=== PATIENT | male | born 1955 | race Caucasian/White ===

== ENCOUNTER 2024-12-28 13:22 | Emergency (ER) | payer MEDICARE, SELFPAY ==
--- OUTSIDE RECORDS SUMMARY | 2024-12-28 13:25 | XMS_ITS | Clinical Summary ---
Author Organization [facility] Address [address] [place] [id number] Care Team Providers Care Inker And Opaquer Name Role Phone Pcp, No Primary Care Provider Unavailabl e Allergies Active Allergy Reactions Criticality Noted Date Comments Perfume Rash 09/22/2009 Sensitivity to fragrances, tiburcio. 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 12/29/2017 Mood disorder 01/09/2017 Chronic obstructive pulmonary disease 06/07/2015 Tobacco abuse, in remission 06/07/2015 OCD (obsessive compulsive disorder) 10/20/2012 Overview (10/20/2012): Hoarding Moderate episode of recurrent major depressive d isorder 10/20/2012 Overview (10/20/2012): R/o MDD Alcohol abuse, in remission 10/20/2012 Sensorineural hearing loss, bilateral 10/13/2009 Legal blindness of right eye , as defined in [place] Resolved Problems Problem Noted Date Diagnosed Date Resolved Date Adjustment disorder with depressed mood 11/22/2009 10/20/2012 Immunizations Immunization Administration Dates Next Due Influenza, IIV4 03/29/2015 Influenza, Inactivated IIV3 (Age 65+ Years) Preserv Free 04/24/2019 Tdap 06/07/2015 Zoster (Zostavax-ZVL, live) 04/12/2015 Family History Medical History Relation Name Comments Psychiatric illness Child Depressi on Alcohol/Drug Father Heart attack Father Hyperlipidemia Father Hypertension Father Stroke Father age 57 Psychiatric illness Grandchild ADHD Diabetes Maternal Grandfather Asthma Mother Cancer Mother luekemia Hyperlipidemia Mother Hypertension Mother Other Mother leukemia Psychiatric illness Mother Pt is un sure but describes hoarding Psychiatric illness Sister 1 Pt is un sure Psychiatric illness Sister 2 Pt is un sure Relation Name Status Comments Child Daughter 1 Alive Daughter 2 Alive Father (Age 68) [place] Grandchild Maternal Grandfather Mother (Age 70s) Leukemia Sister 1 Alive Sister 2 Alive Social History Tobacco Use Types Packs/Day Years Used Date Smoking Tobacco: Former Cigarettes 0.5 20 1 - 03/08/2017 Cigars Smokeless Tobacco: Former Snuff Tobacco Cessation:Counseling Given: Yes Alcohol Use Standard Drinks/Week Comments Yes 0 (1 standard drink = 0.6 oz pure alcohol) Teenager, CD tx x2 remotely, 1984 DUI, heavy remotely, current 0-3 beers/week PHQ-2 Answer Date Recorded PHQ-2 TOTAL SCORE 3 07/24/2021 Social Connections Answer Date Recorded Frequency of Communication with Friends and Fami ly Not on file 07/24/2021 Sex and Gender Information Value Date Recorded Sex Assigned at Not on file Legal Sex 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 Gender Identity Not on file Sexual Orientation Not on file 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 Not on file Not on file Not on file Obstetrics History Last Filed Vital Signs Vital Sign Reading Time Taken Comments Blood Pressure 138/91 07/24/2021 3:09 PM CDT Pulse 67 07/24/2021 2:01 PM CDT Temperature 36.6 C (97.8 F) 07/24/2021 2:01 PM CDT Respiratory Rate 18 09/18/2017 2:29 PM CDT Oxygen Saturation 98% 07/24/2021 2:01 PM CDT Inhaled Oxygen Concentration - - Weight 105.4 kg (232 lb 6.4 oz) 07/24/2021 2:01 PM CDT Height 182.9 cm (6') 07/24/2021 2:01 PM CDT Body Mass Index 31.52 07/24/2021 2:01 PM CDT Plan of Treatment Health Maintenance Due Date Last Done Comments Hepatitis C screening for age 18-79 1971 Pneumococcal series for age 50+ (1 of 1 - PCV) 2003 Zoster (shingles) series for age 50+ (2 of 3) 06/07/2015 04/12/2015 Medicare Wellness for age 65+ 06/10/2019 06/09/2018 Lipids for age 45-75 03/29/2020 03/29/2015, 03/29/2015, 09/05/2012, Additional history exists BMI (ht and wt on same day) for age 18+ 07/24/2022 07/24/2021, 09/11/2018, 06/09/2018, Additional history exists Depression screening for age 12+ 07/24/2022 07/24/2021, 06/09/2018, 01/31/2018, Additional history exists COVID-19 vaccine series ( season) 2024 11/18/2020, 10/28/2020 Influenza Vaccine (#1) 2025 04/24/2019, 2014 Tetanus booster 06/07/2025 06/07/2015 RSV vaccine for adults or (1 - 1-dose 75+ series) 01/12/2028 Colonoscopy through age 75 09/21/2031 09/20/2021, Hepatitis B series for 19+ Aged Out N o longer eligible based on patient's age to complete this topic Procedures Procedure Name Priority Date/Time Associated Diagnosis Comments COLONOSCOPY 09/20/2021 11:00 AM CDT LIPID PANEL W REFLEX MEASURED LDL Routine 03/29/2015 4:39 PM LOGISTICS SYSTEM ENGINEER Physical exam from Last 3 Months or Most Recently Relevant to Health Maintenance Results * COLONOSCOPY (09/20/2021 11:00 AM CDT) 09/20/2021 11:0 0 AM CDT Narrative Transcriptions Missael Hayden MD - 09/20/2021 12:25 PM CDT Patient Name: Dg Butler Procedure Date: 09/20/2021 Gender: Male Date of : 1955 Admit Type: Outpatient Procedure: Colonoscopy Proceduralist: Missael Hayden MD , Sherlyn López RN(Nurse) Indications/Pre-Op Diagnosis: High risk colon cancer surveillance:Personal history of adenoma less than 10 mm in size, Last colonoscopy: December 2005 Medications: Fentanyl 100 micrograms IV, Midazolam 4 mgIV, The level of sedation administered wasmoderate Procedure Description: The patient had risks, benefits and alternatives explained to andgave informed consent. The patient had a stable cardiopulmonary status and judged an adequate candidate for conscious sedation. The Colon CF-H180AL [id number] was passed through the anus and advancedto the cecum, identified by appendiceal orifice and ileocecal valve. The colonoscopy was performed without difficulty. The patient toleratedthe procedure well. The quality of the bowel preparation was good. The ileocecal valve, appendiceal orifice, and rectum were photographed. Complications: No immediate complications. Estimated Blood Loss & Specimen: Estimated blood loss: none. Estimated blood loss: none. Specimen collected - None Findings: The perianal and digital rectal examinations were normal. A few small-mouthed diverticula were found in the entire colon. The exam was otherwise without abnormality. Impressions/Post-Op Diagnosis: - Diverticulosis in the entire examined colon. - The examination was otherwise normal. - No specimens collected. Recommendation: - Patient has a contact number available for emergencies. The signsand symptoms of potential delayed complications were discussed with the patient. Return to normal activities tomorrow. Written discharge instructions were provided to the patient. - Resume previous diet. - Continue present medications. - Repeat colonoscopy in 7 years for surveillance. Moderate Sedation: Moderate (conscious) sedation was administered by the endoscopy nurse and supervised by the endoscopist. The following parameters were monitored: oxygen saturation, heart rate, respiratory rate, blood pressure, adequacy of pulmonary ventilation and reponse to care. Please refer to the patient's medical record flowsheets and nursing notes for moderate sedation details. Total physician intraservice time was 26 minutes. Missael Hayden MD 09/20/2021 12:24:45 PM This report has been signed electronically. Note Initiated On: 09/20/2021 11:00 AM Procedure Code(s): --- Professional --- 72107, Colonoscopy, flexible; diagnostic, including collection of specimen(s) bybrushing or washing, when performed (separateprocedure) Diagnosis Code(s): --- Professional --- Z86.010, Personal history of colonicpolyps K57.30, Diverticulosis of large intestine without perforation or abscess withoutbleeding CPT copyright 2020 [employer]. All rights reserved. The codes documented in this report are preliminary and upon certified coder reviewmay be revised to meet current compliance requirements. Scope In: 11:44:45 AM Scope Withdrawal Time 0 hours 8 minutes 55 seconds Scope Out: 12:08:03 PM us Missael Hayden MD PROCEDURE ORD Final Res ult * (ABNORMAL) LIPID PANEL W REFLEX MEASURED LDL (03/29/2015 4:39 PM LOGISTICS SYSTEM ENGINEER) CHOLESTEROL,TOTAL 251(H) 100 - 199 mg/dL 03/29/2015 5:08 PM LOGISTICS SYSTEM ENGINEER [facility] TRIGLYCERIDES 405(H) <150 mg/dL 03/29/2015 5:08 PM LOGISTICS SYSTEM ENGINEER [facility] HDL CHOLESTEROL 33(L) >40 mg/dL 03/29/2015 5:08 PM LOGISTICS SYSTEM ENGINEER [facility] NON-HDL CHOLESTEROL 218(H) <145 mg/dl 03/29/2015 5:08 PM LOGISTICS SYSTEM ENGINEER [facility] CHOL/HDL RATIO 7.61(H) <4.50 03/29/2015 5:08 PM LOGISTICS SYSTEM ENGINEER [facility] LDL CHOLESTEROL 03/29/2015 5:08 PM LOGISTICS SYSTEM ENGINEER [facility] Comment:Invalid LDL when Tri g >400, reflexed to measured LDL PATIENT STATUS NOT GIVEN 03/29/2015 5:08 PM LOGISTICS SYSTEM ENGINEER [facility] Blood specimen (specimen) BLOOD SPECIMEN / Unknown Venipuncture / Unknown 03/29/2015 4:39 PM LOGISTICS SYSTEM ENGINEER 03/29/2015 4:39 PM LOGISTICS SYSTEM ENGINEER us Ryley Laurent MD CHEMISTRY Final Re sult [facility] [address] [place] [address], [place] [phone] from Last 3 Months or Most Recently Relevant to Health Maintenance Insurance [facility] MEDICARE ADVANTAGE MR Care Teams [employer] Relationship Specialty Start Date End Date Pcp, No . PCP - General 07/04/22
[2024-12-28 13:32] VITALS: BP 136/93; PULSE 102; RESP 20; TEMP 36.4; O2SAT 96; BMI 29.6
--- NOTE | 2024-12-28 13:52 | CRLHL7_ITS ---
For Patients: As a result of the Cures Act, medical imaging exams and procedure reports are released immediately into your electronic medical record. You may view this report before your referring provider. If you have questions, please contact your health care provider. INDICATION: Left knee pain. TECHNIQUE: Left knee three views. COMPARISON: None. FINDINGS: No acute fracture or dislocation. Mild degenerative changes in the patellofemoral compartment. No other osseous abnormality. Trace suprapatellar effusion and heterogeneity of the infrapatellar fat pad. Soft tissues elsewhere as imaged unremarkable. IMPRESSION: No acute osseous abnormality. Dictated by Kiko Del Cid MD @ 12/28/2024 3:05:18 PM (Electronically Signed)
--- NOTE | 2024-12-28 13:55 | ED_ITS ---
HPI - General Adult General Time Seen by Provider: 13:55 Date Seen: 12/28/24 Chief complaint: Extremity Pain/Injury, Lower Stated complaint: pain in right knee Time Seen by Provider: 12/28/24 13:37 Source: patient Mode of arrival: ambulatory Limitations: physical limitation History of Present Illness HPI narrative: Dg is a 69-year-old with depression and anxiety, COPD not on home oxygen, GERD, sensorineural hearing loss, tobacco abuse presents emergency department via private car and self with left knee pain. Patient states he has had left knee pain over the last 6 weeks, he denies any new she will trauma or injury. He has had progressively worsening knee pain, he denies any increased swelling or redness or warmth to that left knee, he is able to ambulate. He is able to bend that knee. He states that he is able to get up walk around his house but then has sit down due to the pain, he recently took his grandchildren to [facility] since then progressively worsening pain. He denies any weakness to the area. Denies any fevers or chills, no history of any gout. Patient has not seen his primary care provider about this left knee in the past. He has not seen his primary care provider over the last 2 years. Patient has been taking Motrin which has helped with the pain. No other concerns at this time. 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) ?C10.9 - Malignant neoplasm of oropharynx, unspecified (ICD-10) Alcohol abuse, in remission ?F10.11 - Alcohol abuse, in remission (ICD-10) Ophthalmic herpes zoster (1984) ?B02.30 - Zoster ocular disease, unspecified (ICD-10) Surgical History (Updated 12/13/22 @ 13:19 by Danielle Rao) History of oral surgery (10/08/17) ?Z98.890 - Other specified postprocedural states (ICD-10) History of appendectomy (1989) ?Z90.49 - Acquired absence of other specified parts of digestive tract (ICD- 10) Family History (Updated 12/13/22 @ 12:31 by Danielle Rao) Paternal Grandfather Diabetes Social History Smoking Status: Current some day smoker Exam Narrative: Exam Narrative: General: NAD, sitting comfortably HEENT: PERRL, EOMI Neck: Supple Lungs: normal pulmonary effort Heart: NSR Muscle skeletal: Left knee: Active extension and flexion with pain, no joint effusion, no erythema or warmth, valgus and varus comparable bilaterally Jameson's comparable bilaterally Neuro: Alert awake and oriented x3 Const: Vital Signs, click to edit/add: Vital Signs - 24 hr 12/28/24 13:32 Temperature 97.5 F L Pulse Rate [Pulse Oximeter] 102 H Respiratory Rate 20 Blood Pressure [Ri ght Upper Arm] 136/93 H Pulse Oximetry 96 Oxygen Delivery Me thod Room Air Course Course ED Course: 2:00 PM: aidet performed. Vitals are normal at this time, workup will include XR left knee 4V, will obtain CBC, CRP, CMP, uric acid, suspect progressive worsening arthritis, no signs of any septic arthritis or joint effusion on exam. Differential also includes fracture, dislocation, tendinitis, nerve damage or vascular damage. Reevaluation(s) Time of Reevaluation #1: 15:08 Reevaluation #1: Imaging: FINDINGS: No acute fracture or dislocation. Mild degenerative changes in the patellofemoral compartment. No other osseous abnormality. Trace suprapatellar effusion and heterogeneity of the infrapatellar fat pad. Soft tissues elsewhere as imaged unremarkable. IMPRESSION: No acute osseous abnormality. CBC showed no anemia, no leukocytosis, comprehensive metabolic panel showed normal renal function, electrolytes and LFT's, CRP mildly elevated 8.7, no comparisons, uric acid level also mildly elevated 10.4 no comparisons, however uric acid level on his own cannot be used to diagnose or rule out gout specially in this clinical setting, imaging did show no acute fracture dislocation mild degenerative changes in the patellafemoral compartment trace suprapatellar effusion which could be causing his chronic pain. The knee has no for clinical findings of gout or septic arthritis, there is no swelling, erythema, warmth and tenderness of the affected joint. Acute on chronic knee pain with suprapatellar effusion. Will likely prescribe short course of indomethacin 50 mg 3 times daily over the next 5 days, instructed him to diamond picker a knee sleeve for the swelling, follow-up appointment has been made with Orthopedics here this Saturday, return precautions given. Vital Signs Vital signs: Initial Vital Signs Temperature 97.5 F L 12/28/24 13:32 Temperature Source Temporal Artery Scan 12/28/24 13:32 Pulse Rate 102 H 12/28/24 13:32 Respiratory Rate 20 12/28/24 13:32 Blood Pressure 136/93 H 12/28/24 13:32 Blood Pressure Mean 107 H 12/28/24 13:32 Blood Pressure Position Sitting 12/28/24 13:32 Pulse Oximetry 96 12/28/24 13:32 Oxygen Delivery Method Room Air 12/28/24 13:32 Vital Signs Temperature 97.5 F L 12/28/24 13:32 Pulse Rate 102 H 12/28/24 13:32 Respiratory Rate 20 12/28/24 13:32 Blood Pressure 136/93 H 12/28/24 13:32 Pulse Oximetry 96 12/28/24 13:32 Oxygen Delivery Method Room Air 12/28/24 13:32 Temperature 97.5 F L 12/28/24 13:32 Pulse Rate 102 H 12/28/24 13:32 Respiratory Rate 20 12/28/24 13:32 Blood Pressure 136/93 H 12/28/24 13:32 Pulse Oximetry 96 12/28/24 13:32 Oxygen Delivery Method Room Air 12/28/24 13:32 Medical Decision Making Lab Data Labs: Lab Results 12/28/24 Range/Units 14:27 WBC 7.12 (4.50-11.00) K/uL RBC 4.69 (4.30-5.90) m/uL Hgb 13.0 L (13.5-17.5) gm/dL Hct 40.4 (37.0-53.0) % MCV 86 (80-100) fL MCH 28 (26-34) pg MCHC 32 (32-36) gm/dL RDW Coeff of Neil 14.3 (11.5-15.5) % Plt Count 390 (140-440) K/uL Neut % (Auto) 49.2 (42.0-72.0) % Lymph % (Auto) 32.7 (20-44) % [place] % (Auto) 9.0 (0.0-11.0) % Eos % (Auto) 6.9 (0.0-7.0) % Baso % (Auto) 1.1 (0.0-3.0) % Neut # (Auto) 3.50 (1.7-7.0) K/uL Lymph # (Auto) 2.33 (0.90-2.90) K/uL [place] # (Auto) 0.60 (0.00-0.90) K/UL Eos # (Auto) 0.49 (0.00-0.50) K/uL Baso # (Auto) 0.08 (0.00-0.30) K/uL Abs Immat Gran (auto) 0.08 (0.00-0.30) K/uL Imm/Tot Granulo (auto) 1.1 % Sodium 138 (135-149) mmol/L Potassium 3.9 (3.6-5.1) mmol/L Chloride 104 (96-114) mmol/L Carbon Dioxide 21 (20-32) mmol/L Anion Gap 13 (7-15) mEq/L BUN 17 (7-30) mg/dL Creatinine 1.4 (0.5-1.5) mg/dL Estimated Creat Clear 54.69 Estimated GFR 54 ml/min Glucose 121 H (60-115) mg/dL Uric Acid 10.4 H (2.2-8.4) mg/dL Calcium 9.6 (8.4-10.6) mg/dL Total Bilirubin 0.5 (0.1-1.5) mg/dL AST 29 (12-35) U/L ALT 23 (4-50) U/L Alkaline Phosphatase 124 (40-150) U/L C-Reactive Protein 8.7 H (0.5-1.0) mg/dL Total Protein 8.6 H (6.0-8.3) g/dL Albumin 4.2 (3.3-5.0) g/dL Discharge Plan Discharge Clinical Impression: Suprapatellar effusion of knee, Chronic knee pain Patient Disposition: Home, Self-Care Condition: Improved Instructions: Knee Pain (ED) Additional Instructions: To take Indomethacin 50 mg 3 times daily over the next 5 days, diamond picker a knee sleeve for support and help with the swelling. Follow up appointment is scheduled at the [facility] on 12/30 with a 1:20pm appointment time. Please check in at 1:10pm to complete paperwork. If you have any questions or need to reschedule, please call [phone]. [facility] [address] [place] [id number] Activity Level: Activity as Tolerated Prescriptions: New indomethacin 50 mg capsule 50 mg PO TID 5 Days Qty: 15 0RF Rx Instructions: administer with food or milk Follow Up/Referrals: Tien Hightower MD [Primary Care Provider, Internal Medicine] Stand Alone Forms: [employer] Info Instructions
[2024-12-28 14:40] LABS: Hematocrit 40.4 % (37.0-53.0); Hemoglobin* 13.0 gm/dL (13.5-17.5); Immature Granulocytes Abs Auto 0.08 K/uL (0.00-0.30); Immature Granulocytes Pct Auto 1.1 %; Lymphocytes Absolute Auto 2.33 K/uL (0.90-2.90); Mean Corpuscular HGB Conc 32 gm/dL (32-36); Mean Corpuscular Hemoglobin 28 pg (26-34); Mean Corpuscular Volume 86 fL (80-100); RDW Coefficient of Variation % 14.3 % (11.5-15.5); Red Blood Count 4.69 m/uL (4.30-5.90); White Blood Count* 7.12 K/uL (4.50-11.00)
[2024-12-28 14:54] LABS: Albumin* 4.2 g/dL (3.3-5.0); Chloride* 104 mmol/L (96-114); Potassium* 3.9 mmol/L (3.6-5.1); Sodium* 138 mmol/L (135-149)
[2024-12-28 14:56] LABS: Blood Urea Nitrogen* 17 mg/dL (7-30); Creatinine* 1.4 mg/dL (0.5-1.5); Est. Creatinine Clearance* 54.69; Estimated Glomerular Filt Rate 54 ml/min
[2024-12-28 14:57] LABS: Alanine Aminotransferase* 23 U/L (4-50); Alkaline Phosphatase* 124 U/L (40-150); Anion Gap 13 mEq/L (7-15); Aspartate Amino Transferase* 29 U/L (12-35); Bilirubin Total* 0.5 mg/dL (0.1-1.5); Carbon Dioxide* 21 mmol/L (20-32); Total Protein* 8.6 g/dL (6.0-8.3)
[2024-12-28 14:58] LABS: Calcium* 9.6 mg/dL (8.4-10.6); Glucose* 121 mg/dL (60-115)
[2024-12-28 15:00] LABS: Slide Review Reflex No
== END 2024-12-28 16:01 | disposition home or self-care (01) ==
PROVIDERS: Emergency Provider Student in an Organized Health Care Education/Training Program; PCP Internal Medicine
DX: M25.462 Effusion, left knee (principal); G89.29 Other chronic pain
CPT/HCPCS: 36415; 73562; 80053; 84550; 85025; 86140; 99284